=== PATIENT | female | born 1990 | race Caucasian/White ===

== ENCOUNTER 2019-01-11 10:11 | Day surgery (SDC) | payer OTHER ==
[2019-01-08 16:51] VITALS: BMI 20.9
[~2019-01-11] VITALS: Ht 162.6 cm; Wt 56.0 kg
[2019-01-11] VITALS (12 sets, daily range): BP systolic 96–131; BP diastolic 61–83; PULSE 48–77; RESP 14–21; Ht 162.6 cm; Wt 56.0 kg
[~2019-01-11 10:11] MED LIST: CEFAZOLIN 2 GM/50 ML (PMX) 50 ML IVPB ONE; SOD CHLORIDE 0.9% 1,000 ML IV ONE
[2019-01-11] MEDS ORDERED: FLUT1AER INHALATION (11:01)
[2019-01-11] MEDS ORDERED: MONT10TA24 PO (11:01)
[2019-01-11] MEDS ORDERED: BUPIVACAINE 0.25% (MPF) 30 ML INJ ONE (12:36)
[2019-01-11] MEDS ORDERED: POLYMYXIN/BACITRACIN 1L IRRIG ONE ×2 (12:36→14:16)
[2019-01-11] MEDS ORDERED: CEFAZOLIN 1 GM INJ ONE (13:00)
[2019-01-11] MEDS ORDERED: DESFLURANE 15 MIN ONE (13:00)
[2019-01-11] MEDS ORDERED: ROCURONIUM 50 MG INJ ONE ×2 (13:08→14:56)
[2019-01-11] MEDS ORDERED: LIDOCAINE 2% (SDV) 5 ML INJ ONE ×2 (13:08→14:56)
[2019-01-11] MEDS ORDERED: MIDAZOLAM 1 MG/ML 2 ML INJ ONE (13:08)
[2019-01-11] MEDS ORDERED: PROPOFOL 20 ML ONE ×2 (13:08→14:56)
[2019-01-11] MEDS ORDERED: ROPIVACAINE 0.5 % 30 ML VIAL ONE (13:13)
--- NOTE | 2019-01-11 13:49 | PREAC ---
Date/Time of Note Date/Time of Note DATE: 01/11/19 TIME: 13:48 Anesthesia Eval and Record Evaluation Time Pre-Procedure Interview DATE: 01/11/19 TIME: 13:48 Age 28 Sex female NPO: 8 hrs Preoperative diagnosis gallstones Planned procedure lap choly Past Medical History Past Medical History: Includes Pulm: Asthma Surgery & Anesthesia Issues No known issue Meds Anticoagulation: No Beta Edwin within 24 hr: No Reason Beta Edwin not given: Pt. not on B-Edwin Reported Medications Montelukast Sodium* (Montelukast Sodium*) 10 Mg Tablet, 10 MG PO QHS, #30 TAB 01/11/19 Fluticasone-Vilanterol (Breo Ellipta Inhaler) 100-25 Mcg/Actuation Aer.pow.ba, 1 PUFF INHALATION DAILY, #1 INHALER 01/11/19 Current Medications Sodium Chloride 1,000 ml @ 75 mls/hr [id number] ONCE IV Last administered on 01/11/19at 11:12; Admin Dose 75 MLS/HR; Start 01/11/19 at 09:00; Stop 01/11/19 at 22:19 Meds reviewed: Yes Allergies Uncoded Allergies: dogs,cats,horses (Allergy, Unknown, 01/08/19) Allergies Reviewed: Yes Labs/Studies Labs Reviewed: Reviewed by anesthesiologist test: N/A Pre-procedure Exam Last vitals Vital Signs Date Temp Pulse Resp B/P (MAP) Pulse Ox O2 O2 Flow FiO2 Time Delivery Rate 01/11/19 98.4 48 16 96/61 (73) 100 Room Air 11:28 Airway: Adequate mouth opening, Adequate thyromental dist Mallampati: Mallampati III Teeth: Normal Lung: Normal Heart: Normal ASA Physical Status ASA physical status: 2 Emergency: None Pre-operative Attestations Prior to commencing anesthesia and surgery, the patient was re-evaluated, there was verification of: *The patient's identity *The results of appropriate recent lab work and preoperative vital signs *The above evaluation not changing prior to induction *Anesthetic plan, risk benefits, alternative and complications discussed with patient/family; questions answered; patient/family understands, accepts and wishes to proceed. MOLLY SCHAFER DO Jan 11, 2019 13:49
[2019-01-11] MEDS ORDERED: DIPHENHYDRAMINE 50 MG INJ IV PRN (14:00)
[2019-01-11] MEDS ORDERED: HYDROmorphONE 1 MG/5 ML IV SYRINGE IV PRN ×3 (14:00)
[2019-01-11] MEDS ORDERED: LORAZEPAM 2 MG INJ IV PRN (14:00)
[2019-01-11] MEDS ORDERED: ONDANSETRON 4 MG INJ IV PRN (14:00)
[2019-01-11] MEDS ORDERED: MEPERIDINE 25 MG INJ IV PRN (14:00)
[2019-01-11] MEDS ORDERED: ONDANSETRON 4 MG INJ ONE (14:26)
[2019-01-11] MEDS ORDERED: DEXAMETHASONE 4 MG/ML 5 ML INJ ONE (14:26)
[2019-01-11] MEDS ORDERED: SUGAMMADEX SODIUM 200 MG/2 ML VIAL IV ONE (14:56)
--- NOTE | 2019-01-11 15:14 | OPR ---
Date/Time of Note Date/Time of Note DATE: 01/11/19 TIME: 15:09 Operative Report Procedure Date: Jan 11, 2019 Preoperative Diagnosis incarcerated ventral hernia Postoperative Diagnosis same Operation/Procedure Performed 1. laparoscopic incarcerated ventral hernia repair 2. 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 She is developed a ventral hernia that is incarcerated and requires surgical repair. Risks alternatives benefits and personal were discussed with the patient. Potential complications including but not limited to bleeding infection mesh infection mesh migration were discussed with patient. Patient expressed understanding and consents to the operation. Procedure Description Patient was taken to the OR and prepped and draped in usual sterile fashion. Surgical timeout is performed. IV antibiotics given. Left upper quadrant subcostal 5 mm transverse incision was made with a 15 blade. Using a 5 mm optical trocar optical entry is performed. Pneumoperitoneum is established. Left flank 12 mm optical trochars placed under direct visualization. Left lower quadrant 5 mm optical trochars placed under direct visualization. Upon initial inspection there is incarcerated hernia in the ventral aspect. Laparoscopic lysis of adhesions were performed and the hernia was manually reduced. The hernia defect was then identified and closed using a #1 Vicryl in interrupted fashion with Endo Close and laparoscopic techniques. After primary closure of the defect 10 x [address] mesh was secured in place with secure strap with approximate 45 cm of coverage in all directions. Good hemostasis established in the abdomen. All ports were removed under direct visualization. All skin incisions were closed with interrupted and running 4-0 Monocryl. A tap block was provided by the anesthesiologist at the beginning the case. Steri- Strips and dry dressings were applied. Kalina KUMAR Jan 11, 2019 15:14
--- NOTE | 2019-01-11 15:18 | PAC ---
Date/Time of Note Date/Time of Note DATE: 01/11/19 TIME: 15:18 Post-Anesthesia Notes Post-Anesthesia Note Last documented vital signs Vital Signs Date Temp Pulse Resp B/P (MAP) Pulse Ox O2 O2 Flow FiO2 Time Delivery Rate 01/11/19 98 55 16 120/65 100 Room Air 1518 Activity: WNL Respiratory function: WNL Cardiovascular function: WNL Mental status: Baseline Pain reasonably controlled: Yes Hydration appropriate: Yes Nausea/Vomiting absent: Yes MOLLY SCHAFER DO Jan 11, 2019 15:18
[2019-01-11] MEDS ORDERED: HYDROCODONE/APAP (5/325) TAB PO ONE (15:30)
== END 2019-01-11 17:14 | disposition home or self-care (01) ==
LOC: SDS 10:11
PROVIDERS: ATTEND Surgery
DX: K43.6 Other and unspecified ventral hernia with obstruction, without gangrene (principal); J45.909 Unspecified asthma, uncomplicated
CPT/HCPCS: 49653; 84703; C1781; J0690; J1100; J1170; J2250; J2405; J2795; J3010; Z7512; Z7610